=== PATIENT | female | born 2000 ===

== ENCOUNTER 2022-12-12 18:14 | Outpatient (REF) | payer OTHER, SELFPAY | END 2022-12-12 18:15 | disposition home or self-care (01) | LOC: HO.HHCLNP 18:14 | PROVIDERS: PCP Emergency Medicine; Visit Provider Emergency Medicine | DX: N89.8 Other specified noninflammatory disorders of vagina (principal) | CPT/HCPCS: 87480; 87510; 87660 ==

== ENCOUNTER 2022-12-24 14:55 | Outpatient (REF) | payer MEDICAID, OTHER, SELFPAY ==
[2022-12-25 07:06] LABS: CT PCR NOT DETECTED (Not Detect.); NG PCR NOT DETECTED (Not Detect.)
== END 2022-12-24 14:56 | disposition home or self-care (01) ==
LOC: HO.CHCLDS 14:55
PROVIDERS: Visit Provider Family Medicine
DX: N76.0 Acute vaginitis (principal)
CPT/HCPCS: 0353U; 87480; 87510; 87660

== ENCOUNTER 2022-12-24 20:55 | Outpatient (REF) | payer MEDICAID, OTHER, SELFPAY ==
[2022-12-25 14:19] LABS: BV Int Neg Control Negative (Negative); BV Int Pos Control Positive (Positive)
== END 2022-12-24 20:56 | disposition home or self-care (01) ==
LOC: HO.CHCLNP 20:55
PROVIDERS: Visit Provider Family Medicine
DX: N76.0 Acute vaginitis (principal)
CPT/HCPCS: 87480; 87510; 87660

== ENCOUNTER 2023-05-07 15:31 | Outpatient (REF) | payer OTHER, SELFPAY ==
[2023-05-09 20:18] LABS: C. trachomatis RNA TMA NOT DETECTED (NOT DETECTED); N. gonorrhoeae RNA TMA NOT DETECTED (NOT DETECTED)
== END 2023-05-07 15:32 | disposition home or self-care (01) ==
LOC: HO.CHCLNP 15:31
PROVIDERS: Visit Provider Internal Medicine
DX: N89.8 Other specified noninflammatory disorders of vagina (principal)
CPT/HCPCS: 36415; 81513; 87491; 87591

== ENCOUNTER 2023-11-19 19:45 | Outpatient (REF) | payer MEDICAID, OTHER, SELFPAY ==
[2023-11-19 23:07] LABS: CT PCR NOT DETECTED (Not Detect.); NG PCR NOT DETECTED (Not Detect.)
[2023-11-20 11:03] LABS: Bacterial Vaginosis PCR POSITIVE (Negative); Candida Group PCR DETECTED (Not Detect); Candida glab krusei PCR NOT DETECTED (Not Detect); Trichomonas vaginalis PCR NOT DETECTED (Not Detect)
== END 2023-11-19 19:46 | disposition home or self-care (01) ==
LOC: HO.HHCLNP 19:45
PROVIDERS: Visit Provider Internal Medicine Geriatric Medicine
DX: N89.8 Other specified noninflammatory disorders of vagina (principal)
CPT/HCPCS: 0352U; 0353U

== ENCOUNTER 2023-11-22 07:13 | Outpatient (REF) | payer OTHER, SELFPAY ==
[2023-11-28 01:28] LABS: C. Trachomatis RNA TMA, Throat NOT DETECTED; N. gonorrhoeae RNA TMA, Throat DETECTED
== END 2023-11-22 07:14 | disposition home or self-care (01) ==
LOC: HO.HHCLNP 07:13
PROVIDERS: Visit Provider Registered Nurse
DX: Z20.2 Contact with and (suspected) exposure to infections with a predominantly sexual mode of transmission (principal)
CPT/HCPCS: 87491; 87591

== ENCOUNTER 2023-12-06 12:55 | Outpatient (REF) | payer OTHER, SELFPAY | END 2023-12-06 12:56 | disposition home or self-care (01) | LOC: HO.CHCLNP 12:55 | PROVIDERS: Visit Provider Pediatrics | DX: Z13.89 Encounter for screening for other disorder (principal) | CPT/HCPCS: 87491; 87591 ==

== ENCOUNTER 2024-01-24 13:33 | Outpatient (REF) | payer MEDICAID, OTHER, SELFPAY ==
[2024-01-29 14:58] LABS: C. Trachomatis RNA TMA, Throat NOT DETECTED; N. gonorrhoeae RNA TMA, Throat NOT DETECTED
[2024-02-01 03:38] LABS: CT PCR NOT DETECTED (Not Detect.); NG PCR NOT DETECTED (Not Detect.)
[2024-02-01 09:17] LABS: Bacterial Vaginosis PCR NEGATIVE (Negative); Candida Group PCR DETECTED (Not Detect); Candida glab krusei PCR NOT DETECTED (Not Detect); Trichomonas vaginalis PCR NOT DETECTED (Not Detect)
== END 2024-01-24 13:34 | disposition home or self-care (01) ==
LOC: HO.CHCLNP 13:33
PROVIDERS: Visit Provider Registered Nurse
DX: Z12.4 Encounter for screening for malignant neoplasm of cervix (principal); Z86.19 Personal history of other infectious and parasitic diseases; Z20.2 Contact with and (suspected) exposure to infections with a predominantly sexual mode of transmission
CPT/HCPCS: 0352U; 36415; 87491; 87591; 87625; 87661; 88175

== ENCOUNTER 2024-04-10 18:36 | Outpatient (REF) | payer OTHER, SELFPAY | END 2024-04-10 18:37 | disposition home or self-care (01) | LOC: HO.HHCLNP 18:36 | PROVIDERS: Visit Provider Internal Medicine | DX: Z13.89 Encounter for screening for other disorder (principal) ==

== ENCOUNTER 2024-04-13 09:52 | Outpatient (REF) | payer OTHER, SELFPAY ==
[2024-04-13 15:51] LABS: CT PCR NOT DETECTED (Not Detect.); NG PCR NOT DETECTED (Not Detect.)
[2024-04-14 03:54] LABS: Syphilis Screen Nonreactive (Nonreactive)
[2024-04-14 16:48] LABS: RPR Rapid Plasma Reagin NON-REACTIVE (NON-REACTIVE)
[2024-04-16 03:54] LABS: TS Negative Control Passed; TS Panel A 0; TS Panel B 1; TS Positive Control Passed; TSpotTB Negative (Negative)
== END 2024-04-13 09:53 | disposition home or self-care (01) ==
LOC: HO.CHCLDS 09:52
PROVIDERS: Internal Medicine; PCP Registered Nurse; Visit Provider Internal Medicine Infectious Disease
DX: Z00.00 Encounter for general adult medical examination without abnormal findings (principal); Z11.3 Encounter for screening for infections with a predominantly sexual mode of transmission
CPT/HCPCS: 36415; 86481; 86592; 86780; 87491; 87591

== ENCOUNTER 2024-10-26 16:02 | Outpatient (REF) | payer OTHER, SELFPAY ==
[2024-10-27 09:57] LABS: Bacterial Vaginosis PCR POSITIVE (Negative); Candida Group PCR DETECTED (Not Detect); Candida glab krusei PCR NOT DETECTED (Not Detect); Trichomonas vaginalis PCR NOT DETECTED (Not Detect)
[2024-10-27 10:26] LABS: CT PCR NOT DETECTED (Not Detect.); NG PCR NOT DETECTED (Not Detect.)
== END 2024-10-26 16:03 | disposition home or self-care (01) ==
LOC: HO.HHCLNP 16:02
PROVIDERS: Visit Provider Nurse Practitioner Primary Care
DX: N89.8 Other specified noninflammatory disorders of vagina (principal)
CPT/HCPCS: 81515; 87491; 87591

== ENCOUNTER 2024-12-01 17:47 | Outpatient (REF) | payer OTHER, SELFPAY ==
--- OUTSIDE RECORDS SUMMARY | 2024-12-01 17:49 | XMS_ITS | Encounter Summary ---
Author Organization [employer] Address [address] [facility] [address] [address] Care Team Providers Care Adaptive Physical Educator Name Role Phone Dinorah Lopez Primary Care Provider [phone] Babs Moon Primary Care Provider [phone] Encounter Details Date Type Department Care Team (Late st Contact Info) Description 05/14/[address] [facility] [address] [place] [address] Mari Valadez MD 505 [place] [address] Bacterial vaginosis (Primary Dx) Social History Tobacco Use Types Packs/Day Years Used Date Smoking Tobacco: Never Smokeless Tobacco: Never Alcohol Use Standard Drinks/Week Comments Not Currently 0 (1 standard drink = 0.6 oz pur e alcohol) Comments Unknown Sex and Gender Information Value Date Recorded Sex Assigned at Female 03/26/2022 10:33 AM EDT Legal Sex Female 10:33 AM EDT Gender Identity Female 03/26/2022 10:33 AM EDT Sexual Orientation Straight 03/26/2022 10 :33 AM EDT documented as of this encounter Plan of Treatment Not on file documented as of this encounter Visit Diagnoses Diagnosis Bacterial vaginosis- Primary Unspecified vaginitis and vulvovaginitis documented in this encounter Care Teams Adaptive Physical Educator Relationship Specialty Start Date End Date Dinorah Lopez PNP [address] [place], [place] [phone] PCP - General Pediatrics 09/18/17 06/01/23 Babs Moon FNP [address] [place] [address] PCP - General Family Medicine 06/02/23 documented as of this encounter
[2024-12-01 21:58] LABS: Bacterial Vaginosis PCR POSITIVE (Negative); Candida Group PCR NOT DETECTED (Not Detect); Candida glab krusei PCR NOT DETECTED (Not Detect); Trichomonas vaginalis PCR NOT DETECTED (Not Detect)
[2024-12-01 22:33] LABS: CT PCR NOT DETECTED (Not Detect.); NG PCR NOT DETECTED (Not Detect.)
[2024-12-04 18:38] LABS: C. Trachomatis RNA TMA, Throat NOT DETECTED; N. gonorrhoeae RNA TMA, Throat NOT DETECTED
== END 2024-12-01 17:48 | disposition home or self-care (01) ==
LOC: HO.HHCLNP 17:47
PROVIDERS: Visit Provider Family Medicine
DX: N89.8 Other specified noninflammatory disorders of vagina (principal); J39.2 Other diseases of pharynx
CPT/HCPCS: 81515; 87491; 87591

== ENCOUNTER 2025-05-14 17:37 | Outpatient (REF) | payer OTHER, SELFPAY ==
--- OUTSIDE RECORDS SUMMARY | 2025-05-14 14:20 | XMS_ITS | Encounter Summary ---
Author Organization [employer] Address [address] [facility] [address] 7[address] [place] [address] Care Team Providers Care Operating Theatre Technician Name Role Phone Babs Moon DRAKE Primary Care Provider [phone] Reason for Visit * Reason Comments STI Screening Encounter Details Date Type Department Care Team ([facility] st Contact Info) Description 05/14/2025 2:20 PM EST Office Visit [facility] [address] [place] [address] Vaginal discharge Social History Tobacco Use Types Packs/Day Years Used Date Smoking Tobacco: Never Passive Smoke Exposure: Never Smokeless Tobacco: Never Tobacco Cessation:Counseling Given: Not Answered Alcohol Use Standard Drinks/Week Comments Not Currently 0 (1 standard drink = 0.6 oz pur e alcohol) Alcohol Answer Date Recorded How often do you have a drink containing alcohol ? 1 01/24/2024 How many drinks containing a lcohol do you have on a typical day when you are drinking? 0 01/24/2024 How often do you have six or more drinks on one occasion? 0 01/24/2024 Depression Answer Date Recorded Patient Health Questionnaire-9 Score 11 01/24/2024 Patient Health Questionnaire-9 Score 11 01/24/2024 Last PHQ-9: Questionnaire Data Not on file 0 01/24/2024 Housing Stability Answer Date Recorded What is your housing situation today? I have james rodrigez 05/23/[address] you li ve. Do you have problems with any of the following? None of the above 05/23/2023 Food Insecurity Answer Date Recorded Within the past 12 months, y ou worried that your food would run out before you got money to buy more: Never True 05/23/2023 Within the past 12 months,th e food you bought just didn't last and you didn't have enough money to get more: Never True Transportation Answer Date Recorded In the past 12 months, has l ack of transportation kept you from medical appts, meetings, work or from getting things needed for daily living? No 05/23/2023 Utilities Answer Date Recorded In the past 12 months, has t he electric, gas, oil or water company threatened to shut off services in your home? No 05/23/2023 Depression Answer Date Recorded Patient Health Questionnaire-2 Score 3 01/24/2024 Internet Access Answer Date Recorded Internet Access Q1 Yes 01/24/2024 Internet Access Q2 Not on file 01/24/2024 Comments No Sex and Gender Information Value Date Recorded Sex Assigned at Female 03/26/2022 10:33 AM EDT Legal Sex Female 10:33 AM EDT Gender Identity Female 03/26/2022 10:33 AM EDT Sexual Orientation Straight 03/26/2022 10 :33 AM EDT documented as of this encounter Last Filed Vital Signs Vital Sign Reading Time Taken Comments Blood Pressure 116/73 05/14/2025 2:45 PM EST Pulse 70 05/14/2025 2:45 PM EST Temperature 36.7 C (98.1 F) 05/14/2025 2:45 PM EST Respiratory Rate 16 05/14/2025 2:45 PM EST Oxygen Saturation 99% 05/14/2025 2:45 PM EST Inhaled Oxygen Concentration - - Weight 60.8 kg (134 lb) 05/14/2025 2:45 PM EST Height - - Body Mass Index 23.87 04/21/2025 2:31 PM EST documented in this encounter Plan of Treatment Upcoming Encounters Date Type Department Care Team (Late st Contact Info) Description 05/24/2025 9:00 AM EST Office Visit [facility] PEDS [address] [place] [address] Babs Moon FNP 505 [place] [address] Scheduled Orders Name Type Priority Associated Diagnoses Orde r Schedule Bacterial Vaginosis Microbiology Routine Vaginal discharge Ordered: 05/14/2025 Chlamydia/N. Gonorrhoeae RNA, TMA, Urogenitial Microbiology Routine Vaginal discharge Ordered: 05/14/2025 documented as of this encounter Visit Diagnoses Diagnosis Vaginal discharge Leukorrhea, not specified as infective documented in this encounter Additional Health Concerns Assessment Noted Time PHQ-9 Depression Total Score: 11 024 9:24 AM EDT documented as of this encounter Care Teams Operating Theatre Technician Relationship Specialty Start Date End Date Babs Moon FNP [address] [place] [phone] PCP - General Family Medicine 06/02/23 documented as of this encounter
--- OUTSIDE RECORDS SUMMARY | 2025-05-14 17:41 | XMS_ITS | Encounter Summary ---
Author Organization [employer] Address [address] [facility] [address] 7[address] [place] [address] Care Team Providers Care Oxygen Therapy Technician Name Role Phone Babs Moon DRAKE Primary Care Provider [phone] Encounter Details Date Type Department Care Team (Latest Contact Info) Description 05/14/2025 Travel Social History Tobacco Use Types Packs/Day Years Used Date Smoking Tobacco: Never Passive Smoke Exposure: Never Smokeless Tobacco: Never Alcohol Use Standard [...] is your housing situation today? I have jamesmarla rodrigez 05/23/[address] you [...] as of this encounter Plan of Treatment Upcoming Encounters Date Type Department Care Team (Late st Contact Info) Description 05/24/2025 9:00 AM EST Office Visit [facility] MED & PEDS 505 [place] [address] Babs Moon FNP 505 [place] [address] documented as of this encounter Visit Diagnoses Not on filedocumented in this encounter Additional Health Concerns Assessment Noted Time PHQ-9 Depression Total Score: 11 024 9:24 AM EDT documented as of this encounter Care Teams Oxygen Therapy Technician Relationship Specialty Start Date End Date Babs Moon FNP [address] [place] [address] PCP - General Family Medicine 06/02/23 documented as of this encounter
--- OUTSIDE RECORDS SUMMARY | 2025-05-14 17:41 | XMS_ITS | Encounter Summary ---
Author Organization [employer] Address [address] [facility] [address] 7[address] [place] [address] Care Team Providers Care Emergency Worker Name Role Phone Babs Moon Primary Care Provider [phone] Encounter Details Date Type Department Care Team ([facility] st Contact Info) Description 11/20/2023 Orders Only [facility] [address] [place], [place] [phone] Katina Jean NP [address] [place], [place] [phone] Social History Tobacco Use Types Packs/Day Years Used Date Smoking Tobacco: Never Smokeless Tobacco: Never Alcohol Use Standard Drinks/Week Comments Not Currently 0 (1 standard drink = 0.6 oz pur e alcohol) Depression Answer Date Recorded Patient Health Questionnaire-9 Score 0 05/31/2023 Patient Health Questionnaire-9 Score 0 05/31/2023 Last PHQ-9: Questionnaire Data Not on file 0 05/31/2023 Housing Stability Answer Date Recorded What is [...] Answer Date Recorded Patient Health Questionnaire-2 Score 0 05/31/2023 Comments Unknown Sex and Gender Information Value [...] Description 05/24/2025 9:00 AM EST Office Visit [facility] MED & PEDS [address] [place] [address] Babs Moon FNP [address] [place] [address] documented as of this encounter Visit Diagnoses Not on filedocumented in this encounter Additional Health Concerns Assessment Noted Time PHQ-9 Depression Total Score: 0 05/31/19 24 2:53 PM EST documented as of this encounter Care Teams Emergency Worker Relationship Specialty Start Date End Date Babs Moon FNP [address] [place] [address] PCP - General Family Medicine 06/02/23 documented as of this encounter
--- OUTSIDE RECORDS SUMMARY | 2025-05-14 17:41 | XMS_ITS | Clinical Summary ---
Author Organization [employer] Address [address] [facility] [address] [place] [address] Care Team Providers Care Screw Driver Operator Name Role Phone KassandraBabs egan DRAKE Primary Care Provider [phone] Allergies No known active allergies Medications albuterol 108 (90 Base) MCG/ACT inhalerIndicati ons:Subacute cough Inhale 2 puffs every 4 (four) hours if needed for wheezing. 18 g 4 Active fluticasone (Flonase) 50 MCG/ACT nasal sprayIndication s:Nasal congestion INHALE 1 - 2 SPRAYS IN EACH NOSTRIL ONCE DAILY 48 g 3 5 Active ibuprofen 400 MG tablet Take 1 tablet (400 mg) by mouth every 6 (six) hours if needed for moderate pain. 40 tablet 1 5 12/02/19 26 Active benzoyl peroxide (PanOxyl Foaming Wash) 10 % external washIndications :Acne vulgaris Apply topically 2 times daily. 148 g 1 05/04/2025 12:59 PM EST 5 04/21/20 26 Active tretinoin (Retin-A) 0.025 % creamIndication s:Acne vulgaris Apply topically at bedtime. 45 g 2 5 04/21/20 26 Active metroNIDAZOLE (Flagyl) 500 MG tabletIndicatio ns:Vaginal discharge Take 1 tablet (500 mg) by mouth 2 times daily for 7 days. 14 tablet 05/14/2025 3:54 PM EST 5 05/21/20 25 Active norgestimate-et hinyl estradiol (Ortho Tri-Cyclen,Kristy essa) 0.18/0.215/0.25 MG-35 MCG tabletIndicatio ns: control counseling TAKE ONE TABLET BY MOUTH DAILY 84 tablet 1 04/21/20 25 Discontinu ed(Therapy completed) Active Problems Problem Noted Date Diagnosed Date Healthcare maintenance 06/02/2023 Overview (01/28/2024): Last PE: 01/24/24 Pap: 01/24/24 (results pending) Contraception: COCP Assessment & Plan (06/02/2023 5:54 PM EST): Discussed routine pap starting at 23 y/o (may consider to combine with PE ~November 2023) Declined flu shot today Recurrent vaginitis 12/24/2022 Assessment & Plan (01/28/2024 1:03 PM EDT): BV positive 05/29/22, 08/08/22, 05/08/23, 11/19/23. Risk factors: denies hx of douching. If symptoms return, consider tx regimen for recurrent BV Scheduled for further discussion with [facility] Assessment & Plan (06/02/2023 5:45 PM EST): BV positive 05/29/22, 08/08/22, & 05/08/23. Risk factors: denies hx of douching. Partner to receive STI testing through [facility] if interested If symptoms return, consider tx regimen for recurrent BV Assessment & Plan (12/24/2022 2:43 PM EDT): Patient was seen in walkin for these symptoms, unfortunately her self swab wasn't able to get sample. Given symptoms and exam will treat empiricially. Will send for GC/Chlamydia. Patient agreed with plan. Resolved Problems Problem Noted Date Diagnosed Date Resolved Date Vaginal discharge 11/19/2023 01/23/2024 Assessment & Plan (11/19/2023 4:08 PM EDT): -Vaginal swab obtained for testing -will treat as necessary pending lab results. Patient prefers topical treatment if BV. -discussed boric acid given frequency of infections -declines STI testing blood work -discussed pre-coital hygiene for herself and partner Acne vulgaris 08/08/2022 06/02/2023 Encounters Date Type Department Care Team Description 05/14/2025 2:20 PM EST Office Visit [facility] [address] [place] [phone] Vaginal discharge 05/14/2025 Travel 04/21/2025 2:40 PM EST Office Visit [facility] [address] [place] [address] Taurus Griffith MD Acne vulgaris (Primary Dx); Mood swings 04/21/2025 Travel 04/05/2025 Telephone [facility] [address] [place] [address] Babs Moon FNP Lab Orders 03/29/2025 Telephone [facility] [address] [place] [address] Babs Moon FNP Nurse Triage 03/29/2025 Refill [facility] [address] [place] [address] Camelia Sousa DO 03/25/2025 Refill [facility] [address] [place] [address] Babs Moon FNP control counseling from Last 3 Months Immunizations Immunization Administration Dates Next Due HPV 9-Valent 02/24/2016 HPV, Unspecified 11/28/2016 Hep A, ped/adol, 2 dose 04/30/2018,09/18/2017 Hep B, Adolescent or Pediatric 04/07/2003,2002,2002 IPV 11/08/2007, 6,11/03/2005,01/13,11/04/2004,01/12/2004,04/07/2003 ,02/03/2003,01/16/2003,2002,10/25 Influenza injectable quadriv alent preservative free 07/12/2021,06/06/2020,04/29/2019,04/30 Influenza, seasonal, injecta ble, preservative free 04/10/2024 MMR 04/30/2018,09/26/2017 Meningococcal MCV4P ACYW-135 11/05/2018,09/19/19 18 Pfizer Covid-19 Vaccine 12+ 04/10/2024 Tdap 09/26/2017 Varicella 04/30/2018,09/26/2017 Family History Medical History Relation Name Comments Diabetes Father's Brother Diabetes Father's Sister Breast cancer Maternal Grandmother breast mass Mother Benign Pancreatic cancer Mother's Sister Diabetes Paternal Grandmother Relation Name Status Comments Father's Brother Father's Sister Maternal Grandmother Mother Mother's Sister Paternal Grandmother Social History Tobacco Use Types Packs/Day Years [...] Orientation Straight 03/26/2022 10 :33 AM EDT Last Filed Vital Signs Vital Sign Reading Time Taken Comments Blood Pressure 116/73 05/14/2025 2:45 PM EST Pulse 70 05/14/2025 2:45 PM EST Temperature 36.7 C (98.1 F) 05/14/2025 2:45 PM EST Respiratory Rate 16 05/14/2025 2:45 PM EST Oxygen Saturation 99% 05/14/2025 2:45 PM EST Inhaled Oxygen Concentration - - Weight 60.8 kg (134 lb) 05/14/2025 2:45 PM EST Height 159.6 cm (5' 2.83 ) 04/21/2025 2:31 PM ES T Body Mass Index 23.87 04/21/2025 2:31 PM EST Plan of Treatment Upcoming Encounters Date Type Department Care Team (Late st Contact Info) Description 05/24/2025 9:00 AM EST Office Visit [facility] [address] [place] [address] Babs Moon FNP [address] [place] [address] Health Maintenance Due Date Last Done Comments Disability Screening 2002 Alcohol/Substance Use Screening 2014 Family Planning (PISQ) 2017 Meningococcal B Vaccine (1 of 2 - Standard) 2018 Depression Monitoring 07/24/2024 01/24/2024, 024 Dental Oral Exam 10/13/2024 04/14/2024, 10/2018, 11/06/2017 Dental Prophylaxis 10/13/2024 04/14/2024, 1 06/01/2018, 11/06/2017 SDOH Screening 01/23/2025 01/24/2024 COVID-19 Vaccine ( season) 2025 04/10/2024 Influenza Vaccine (#1) 2025 4, 07/12/2021, 06/06/2020, Additional history exists Dental X-Ray: Bitewings 04/15/2025 04/14/20 24, 04/01/2019, 11/06/2017 Chlamydia and Gonorrhea Screening 12/01/2025 12/01/2024, 12/01/2024, 10/26/2024, Additional history exists Tobacco Screening 05/14/2026 05/14/2025 Pap Smear 01/23/2027 01/24/2024 Dental X-Ray: Full Mouth 04/15/2027 04/14/2024, 10/25 DTaP/Tdap/Td Vaccines (2 - Td or Tdap) 09/27/2027 09/26/2017 Zoster Vaccines (1 of 2) 2052 RSV Patients and Patients Aged 60 years or older (1 - 1-dose 75+ series) 2077 Hepatitis B Vaccines Completed 04/07/2003, 2002, 2002 IPV Vaccines Completed 11/08/2007, 12/26, 11/03/2005, Additional history exists HPV Vaccines Completed 11/28/2016, 02/24/2016 Hepatitis A Vaccines Completed 04/30/2018, 09/19/19 18 Meningococcal Vaccine Completed 11/05/2018, 018 HIV Screening Completed 10/26/2024 Hepatitis C Screening Completed 10/26/2024 HIB Vaccines Aged Out No longer eligi ble based on patient's age to complete this topic Pneumococcal Vaccine: Pediatrics (0 to 5 Years) and At-Risk Patients (6 to 49) Years Aged Out No longer eligible based on patient's age to complete this topic RSV under 20 months Aged Out No longe r eligible based on patient's age to complete this topic Rotavirus Vaccines Aged Out No longer eligible based on patient's age to complete this topic Procedures Procedure Name Priority Date/Time Associated Diagnosis Comments CHLAMYDIA/N. GONORRHOEAE RNA, TMA, UROGENITAL Routine 12/01/2024 11:19 AM EDT Vaginal discharge HEPATITIS C ANTIBODY ([place] [facility]) Routine 10/26/2024 HIV ANTIBODY/ANTIGEN ([place] [facility]) Routine 10/26/2024 PROPHYLAXIS - ADULT Routine 04/14/2024 2 :00 PM EST INTRAORAL - COMPLETE SERIES OF RADIOGRAPHIC IMAGES Routine 04/14/2024 2:00 PM EST PERIODIC ORAL EVALUATION - ESTABLISHED PATIENT Routine 04/14/2024 2:00 PM EST THINPREP IMAGING PAP REFL HPV MRNA(IF ASCUS,ASC-H,LSIL) Routine 01/24/2024 10:32 AM EDT from Last 3 Months or Most Recently Relevant to Health Maintenance Results * Chlamydia/N. Gonorrhoeae RNA, TMA, Urogenitial (12/01/2024 11:19 AM EDT) CT PCR NOT DETECTED Not Detect. [facility] Comment:A not detected test result does not exclude the possibilityof infection because test results can be affected byimproper specimen collection, concurrent antibiotic therapy,or the number of organisms in the specimen which may bebelow the sensitivity of the test. As with many diagnostictests, results from the Xpert CT/NG assay should beinterpreted in conjunction with other laboratory andclinical data available to the clinician.Xpert CT/NG performance has not been evaluated in patientsless than 14 years of age. The assay should not be used forthe evaluationof suspected sexual abuse or for other medico-legalindications. Additional testing is recommended in anycircumstance when false positive or false negative resultscould lead to adverse medical, social or psychologicalconsequences. NG PCR NOT DETECTED Not Detect. [facility] Comment:A not detected test result does not exclude the possibilityof infection because test results can be affected byimproper specimen collection, concurrent antibiotic therapy,or the number of organisms in the specimen which may bebelow the sensitivity of the test. As with many diagnostictests, results from the Xpert CT/NG assay should beinterpreted in conjunction with other laboratory andclinical data available to the clinician.Xpert CT/NG performance has not been evaluated in patientsless than 14 years of age. The assay should not be used forthe evaluationof suspected sexual abuse or for other medico-legalindications. Additional testing is recommended in anycircumstance when false positive or false negative resultscould lead to adverse medical, social or psychologicalconsequences. Swab (Vaginal Swab) 12/01/2024 11:19 AM EDT 12/01/2024 5:48 PM EDT Camelia Sousa DO LAB MICROBIOLOGY - GENERAL O RDERABLES Final Result [facility] [address] [place] [phone] * Hepatitis C Antibody ([facility]) (10/26/2024) Pathologist [facility] Hepatitis C Ab Nonreactive Blood 10/26/2024 Result [facility] Historical Provider MD LAB BLOOD ORDERABLES Jana l Result * HIV Ab/Ag ([facility]) (10/26/2024) Pathologist [facility] HIV Ag/Ab Nonreactive Blood 10/26/2024 Historical Provider MD LAB BLOOD ORDERABLES Edit ed Result - Final * ThinPrep?? Imaging Pap Refl HPV mRNA(if ASCUS,ASC-H,LSIL,HSIL,DONNA)Refl Genotype (01/24/2024 10:32 AM EDT) HPV nRNA E6/E7 [facility] HPV 16,18/45 [facility] SOURCE: SEE NOTE [facility] Comment:None given Report Status: [facility] Clinical Information: SEE NOTE [facility] Comment:None given LMP: SEE NOTE [facility] Comment:NONE GIVEN Prev. PAP: SEE NOTE [facility] Comment:NONE GIVEN Prev. BX: SEE NOTE [facility] Comment:NONE GIVEN Statement Of Adequacy: SEE NOTE [facility] Comment:Satisfactory for abimael luation.Endocervical/transformation zone componentpresent. General Categorization: [facility] Interpretation/Result: SEE NOTE [facility] Comment:Cytology Results: Ne gative for intraepitheliallesion or malignancy. Cytology Comment SEE NOTE [facility] Comment:This Pap test has be en evaluated with computerassisted technology. Decontamination Worker: SEE NOTE [facility] Comment:EXJ, CT(ASCP)CT Scre ening Location: [place] [address] Review Decontamination Worker: [facility] Pathologist [facility] PAP Infection [facility] See Note SEE NOTE [facility] Comment:EXPLANATORY NOTE:The Pap is a screening test for cervical cancer. It isnot a diagnostic test and is subject to false negativeand false positive results. It is most reliable when asatisfactory sample, regularly obtained, is submittedwith relevant clinical findings and history, and whenthe Pap result is evaluated along with historic andcurrent clinical information.THIS TEST WAS PERFORMED AT:[facility] [address] [id number] GENTILE MD 01/24/2024 10:3 2 AM EDT 01/24/2024 3:29 PM EDT Narrative [facility] - 01/30/2024 2:57 PM EDT SEE SCANNED RESULTS IN EMR Babs Moon ROTATING FIELD ASSEMBLER LAB CYTOLOGY ORDERABLES Final Result [facility] [address] [place] [address] [phone] from Last 3 Months or Most Recently Relevant to Health Maintenance Insurance [place]-[facility] MED[place] LIMITED ADULT DENTAL - HSN FULL (MEDICAID) Care Teams Screw Driver Operator Relationship Specialty Start Date End Date Babs Moon FNP [address] [place] [address] PCP - General Family Medicine 06/02/23
--- OUTSIDE RECORDS SUMMARY | 2025-05-14 17:41 | XMS_ITS | Encounter Summary ---
Author Organization [employer] Address [address] [facility] 7t [place] [address] Care Team Providers Care Welding Pantograph Operator Name Role Phone Dinorah Lopez NP Primary Care Provider Babs Harris Primary Care Provider [phone] Encounter Details Date Type Department Care Team (Late st Contact Info) Description 05/14/2023 Orders Only [facility] [address] [place], [place] [phone] Mari Valadez MD [address] [place] [address] Bacterial vaginosis (Primary Dx) Social History Tobacco [...] Description 05/24/2025 9:00 AM EST Office Visit [facility] [address] [place], [place] [phone] Babs Moon FNP [address] [place], [place] [phone] documented as of this encounter Visit Diagnoses Diagnosis Bacterial vaginosis- Primary Unspecified vaginitis and vulvovaginitis documented in this encounter Care Teams Welding Pantograph Operator Relationship Specialty Start Date End Date Dinorah Lopez NP PCP - General Pediatrics 09/18/17 06/01/23 Babs Moon FNP [address] [place] [address] PCP - General Family Medicine 06/02/23 documented as of this encounter
--- OUTSIDE RECORDS SUMMARY | 2025-05-14 17:41 | XMS_ITS | Encounter Summary ---
Author Organization [employer] Address [address] [place] [address] Care Team Providers Care Paper Supervisor Name Role Phone KassandrajulisaMarshallle DRAKE Primary Care Provider [phone] Reason for Visit * Reason Onset Date Comments rs cancelled appt 08/13/2024 Encounter Details Date Type Department Care Team (Late st Contact Info) Description 08/13/2024 Telephone [facility] ADULT DENTAL [address] [place] [address] Rudy Branch, DMD [address] [place] [address] rs cancelled appt Social History Tobacco Use Types Packs/Day Years [...] Access Q2 Not on file 01/24/2024 Comments Unknown Sex and Gender Information Value Date Recorded Sex Assigned at Female 03/26/2022 10:33 AM EDT Legal Sex Female 10:33 AM EDT Gender Identity Female 03/26/2022 10:33 AM EDT Sexual Orientation Straight 03/26/2022 10 :33 AM EDT documented as of this encounter Miscellaneous Notes * Telephone Encounter - Abbey Osborne - 08/13/2024 11:48 AM EDT Patient called in looking to 09/[address] Johnson for the month of September. May schedule not open as of yet. Informed patient that message sent to [facility] for rescheduling and she will hear from office. Patient understood DR documented in this encounter Plan of Treatment Upcoming Encounters Date Type Department Care Team ([facility] st Contact Info) Description 05/24/2025 9:00 AM EST Office Visit [facility] MED & PEDS [address] [place] [address] Babs Moon FNP [address] [place] [address] documented as of this encounter Visit Diagnoses Not on filedocumented in this encounter Additional Health Concerns Assessment Noted Time PHQ-9 Depression Total Score: 11 024 9:24 AM EDT documented as of this encounter Care Teams Paper Supervisor Relationship Specialty Start Date End Date Babs Moon FNP [address] [place] [phone] PCP - General Family Medicine 06/02/23 documented as of this encounter
--- OUTSIDE RECORDS SUMMARY | 2025-05-14 17:41 | XMS_ITS | Encounter Summary ---
Author Organization [employer] Address [address] [place] [address] Care Team Providers Care Pca Name Role Phone Babs Moon Primary Care Provider [phone] Reason for Visit * Reason Onset Date Comments Returning Call 12/06/2023 Encounter Details Date Type Department Care Team (Late st Contact Info) Description 12/06/2023 Telephone [facility] MEDICINE [address] [place] [address] Babs Moon FNP [address] [place] [address] Returning Call Social History Tobacco Use Types Packs/Day Years [...] encounter Miscellaneous Notes * Telephone Encounter - Bahman Arciniega - 12/06/2023 12:00 PM EDT Tc from pt stating they received a call around 11:35 but 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 documented in this encounter Plan of Treatment Upcoming Encounters Date Type Department Care Team (Late st Contact Info) Description 05/24/2025 9:00 AM EST Office Visit [facility] MED & PEDS [address] [place] [address] Babs Moon FNP [address] [place] [address] documented as of this encounter Visit Diagnoses Not on filedocumented in this encounter Additional Health Concerns Assessment Noted Time PHQ-9 Depression Total Score: 0 05/31/19 2:53 PM EST documented as of this encounter Care Teams Pca Relationship Specialty Start Date End Date Babs Moon FNP [address] [place] [address] PCP - General Family Medicine 06/02/23 documented as of this encounter
[2025-05-15 01:24] LABS: Bacterial Vaginosis PCR NEGATIVE (Negative); Candida Group PCR NOT DETECTED (Not Detect); Candida glab krusei PCR NOT DETECTED (Not Detect); Trichomonas vaginalis PCR NOT DETECTED (Not Detect)
[2025-05-15 01:55] LABS: CT PCR NOT DETECTED (Not Detect.); NG PCR NOT DETECTED (Not Detect.)
== END 2025-05-14 17:38 | disposition home or self-care (01) ==
LOC: HO.HHCLNP 17:37
PROVIDERS: Visit Provider Registered Nurse
DX: A64 Unspecified sexually transmitted disease (principal); Z20.2 Contact with and (suspected) exposure to infections with a predominantly sexual mode of transmission
CPT/HCPCS: 81515; 87491; 87591